=== PATIENT | female | born 1990 | race Caucasian/White ===

== ENCOUNTER 2017-07-11 21:55 | Emergency (ER) | payer MEDICAID ==
[~2017-07-11] VITALS: Ht 177.8 cm; Wt 80.5 kg
[2017-07-11 23:20] VITALS: Ht 177.8 cm; Wt 80.5 kg
[2017-07-12 01:28] VITALS: BP 130/85
== END 2017-07-12 01:28 | disposition home or self-care (01) ==
LOC: ED 21:55
DX: L02.414 Cutaneous abscess of left upper limb (principal)
CPT/HCPCS: J2001

== ENCOUNTER 2017-07-15 19:22 | Emergency (ER) | payer MEDICAID ==
[~2017-07-15] VITALS: Ht 177.8 cm; Wt 78.9 kg
[2017-07-15 19:39] VITALS: BP 113/65; Ht 177.8 cm; Wt 78.9 kg
== END 2017-07-15 22:16 | disposition home or self-care (01) ==
LOC: ED 19:22
DX: Z48.01 Encounter for change or removal of surgical wound dressing (principal)
CPT/HCPCS: J2001

== ENCOUNTER 2018-01-20 21:51 | Emergency (ER) | payer MEDICAID ==
[2018-01-20 23:05] VITALS: BP 132/73
== END 2018-01-20 23:06 | disposition left against medical advice (07) ==
LOC: ED 21:51
DX: Z53.21 Procedure and treatment not carried out due to patient leaving prior to being seen by health care provider (principal)
CPT/HCPCS: 87491; 87591

== ENCOUNTER 2018-02-02 16:40 | Emergency (ER) | payer MEDICAID ==
[~2018-02-02] VITALS: Ht 177.8 cm; Wt 77.1 kg
[2018-02-02 16:48] VITALS: BP 128/76; Ht 177.8 cm; Wt 77.1 kg
== END 2018-02-02 18:25 | disposition home or self-care (01) ==
LOC: ED 16:40
DX: L03.012 Cellulitis of left finger (principal); Z90.49 Acquired absence of other specified parts of digestive tract; N17.9 Acute kidney failure, unspecified
CPT/HCPCS: J2001

== ENCOUNTER 2018-02-28 11:07 | Emergency (ER) | payer MEDICAID ==
[~2018-02-28] VITALS: Ht 177.8 cm; Wt 75.7 kg
[2018-02-28 11:10] VITALS: BP 133/89
== END 2018-02-28 11:25 | disposition left against medical advice (07) ==
LOC: ED 11:07
DX: F41.9 Anxiety disorder, unspecified (principal); N18.6 End stage renal disease; Z90.49 Acquired absence of other specified parts of digestive tract; F43.10 Post-traumatic stress disorder, unspecified

== ENCOUNTER 2019-10-11 12:23 | Emergency (ER) | payer OTHER ==
[~2019-10-11] VITALS: Ht 177.8 cm; Wt 73.5 kg
[2019-10-11 12:35] VITALS: BP 117/96; Ht 177.8 cm; Wt 73.5 kg
== END 2019-10-11 13:20 | disposition home or self-care (01) ==
LOC: ED 12:23
DX: K02.9 Dental caries, unspecified (principal); F17.210 Nicotine dependence, cigarettes, uncomplicated; N17.9 Acute kidney failure, unspecified
CPT/HCPCS: 99406

== ENCOUNTER 2019-10-11 22:52 | Emergency (ER) | payer OTHER ==
[~2019-10-11] VITALS: Ht 177.8 cm; Wt 73.0 kg
[2019-10-11 22:57] VITALS: BP 154/90; Ht 177.8 cm; Wt 73.0 kg
== END 2019-10-11 23:40 | disposition home or self-care (01) ==
LOC: ED 22:52
DX: J34.89 Other specified disorders of nose and nasal sinuses (principal); N17.9 Acute kidney failure, unspecified

== ENCOUNTER 2020-01-06 05:41 | Emergency (ER) | payer OTHER | END 2020-01-06 06:29 | disposition left against medical advice (07) | LOC: ED 05:41 | DX: Z53.21 Procedure and treatment not carried out due to patient leaving prior to being seen by health care provider (principal) ==